=== PATIENT | male | born 1940 | race Caucasian/White ===

== ENCOUNTER 2023-01-02 05:45 | Day surgery (SDC) | payer OTHER ==
[~2023-01-02] VITALS: Ht 179.1 cm; Wt 82.1 kg
[~2023-01-02 05:45] MED LIST: LIPITOR20 MG PO; LOSARTAN POTAS100 MG PO; NORVASC5 MG PO; TAMS0.4C PO; ZYRTEC10 M3 PO
== END 2023-01-02 12:40 | disposition home or self-care (01) ==
LOC: CIR.AMB 05:45
PROVIDERS: ATTEND Surgery
DX: K40.90 Unilateral inguinal hernia, without obstruction or gangrene, not specified as recurrent (principal); K43.9 Ventral hernia without obstruction or gangrene; Z20.822 Contact with and (suspected) exposure to COVID-19; I10 Essential (primary) hypertension